=== PATIENT | male | born 1955 | race Two or more races ===

== ENCOUNTER 2017-01-07 09:00 | Emergency (ER) | payer BC ==
[2017-01-07 09:10] VITALS: BP 150/98; PULSE 97; RESP 16; TEMP 98.2; O2SAT 98
--- NOTE | 2017-01-07 10:15 | UCPHY ---
H & P Time Seen by Provider: 01/07/17 09:59 Patient Type: New HPI/ROS: This patient complains of nasal congestion 4 days duration. He has associated cough. He has also had some sneezing. He is visiting from [place] over the past 5 days with plans to stay for another few days. He wonders if needed may be having seasonal allergies here though he has never had this in [place]. He complains primarily of the cough that keeps him up at night. He denies any other associated symptoms. He reports that he has clear mucus from his nose and occasionally with cough but no purulent-appearing drainage. ROS: No fevers or chills. No other constitutional symptoms. HEENT: No sore throat, no ear pain. Pulmonary: No pleuritic pain or shortness of breath GI: No vomiting. Integumentary: No skin rash. 7 point ROS is otherwise negative. Past Medical/Surgical History: Otherwise healthy Smoking Status: Never smoked Physical Exam: Physical Exam Vital signs are normal. General: No acute distress HEENT: Nose: Clear discharge bilaterally. No sinus tenderness to percussion. Ears: External canals and tympanic membranes are clear with no erythema or abnormal findings bilaterally. Oropharynx: No erythema or exudates. No dysphonia. No drooling or stridor. Eyes: Pupils equal and react to light. Extraocular motions are intact. Neck: Supple Lungs: Clear to auscultation bilaterally with no rales, rhonchi or wheeze. No respiratory distress. Cardiac: Regular rate and rhythm with no murmur gallop or rub Skin: No rash or pallor. Neuro: Alert with no focal deficits noted. Initial differential diagnosis: URI with cough versus seasonal allergies with cough. Constitutional: Initial Vital Signs Temperature (C) 36.8 C 01/07/17 09:01 Heart Rate 97 01/07/17 09:01 Respiratory Rate 16 01/07/17 09:01 Blood Pressure 150/98 H 01/07/17 09:01 O2 Sat (%) 98 01/07/17 09:01 O2 Delivery Mode Room Air Allergies/Adverse Reactions: bee venom protein (honey bee) Allergy (Severe, Verified 01/07/17 09:09) Hives Home Medications: Medication Instructions Recorded Fluticasone Nasal [Flonase Nasal 2 sprays NASAL DAILY #1 mdi 01/07/17 [facility] (RX)] Guaifenesin/Codeine Phosphate 5 - 10 ml PO Q6 PRN #120 ml 01/07/17 [Guaifenesin-Codeine Liquid] MDM/Departure - MDM ED Course/Re-evaluation: This patient appears clinically well with no evidence of lower respiratory infection, as or toxicity. I counseled him regarding seasonal allergies versus URI with cough. - Depart Disposition: Home, Routine, Self-Care Clinical Impression: Viral URI with cough Condition: Good Instructions: Upper Respiratory Infection (ED) Additional Instructions: Diagnosis: Viral upper respiratory infection with cough Plan: Humidifier Guaifenesin [id number] mucolytic Afrin nasal spray for 2 days then stop the Afrin Flovent steroid nasal spray in addition take this for 10-14 days Guaifenesin with codeine for cough prevents sleep Return for any significant worsening despite treatment plan Prescriptions: Fluticasone Nasal [Flonase Nasal [facility] (RX)] 2 sprays NASAL DAILY #1 mdi Guaifenesin/Codeine Phosphate [Guaifenesin-Codeine Liquid] 5 - 10 ml PO Q6 PRN # 120 ml PRN Reason: Cough Referrals: PEREZ,DEM [Other] - As per Instructions - PQRS PQRS Measurement: NA
== END 2017-01-07 10:26 | disposition home or self-care (01) ==
LOC: CED 09:00
DX: J06.9 Acute upper respiratory infection, unspecified (principal); R05 Cough
CPT/HCPCS: 99203-PO; G0463-PO

== ENCOUNTER 2017-09-15 20:19 | Emergency (ER) | payer BC ==
--- NOTE | 2017-09-15 20:39 | EDPHY ---
H & P Stated Complaint: Dizzy and lighthead HPI/ROS: CHIEF COMPLAINT: Dizzy, unresponsive HISTORY OF PRESENT ILLNESS: The patient is a 62 y/o male complaining of a few episodes of dizziness and unresponsiveness lasting 15 seconds each time, onset 3 days ago. He is from [place], visiting for his daughter's graduation last week. Three days ago, while soaking in a sulfur spring, he became dizzy and "out of it" for 15 seconds. It happened again this morning and again when standing up after dinner this evening. Again, each episode lasted about 15 seconds before resolving. He denies headache, confusion, visual changes, numbness, weakness, shortness of breath, chest pain, or any other associated symptoms. He denies history of cardiac issues, neurologic issues, illicit drug use, or heavy alcohol use. Previous EKGs have been normal REVIEW OF SYSTEMS: A ten point review of systems was performed and is negative with the exception of the items mentioned in the HPI. Past medical history: Denies Past surgical history: 1. Rotator cuff repair 2. Discectomy Family history: 1. Atrial fibrillation, brother and uncle Social history: From [place], , three kids General Appearance: Alert. Vital signs reviewed. Blood pressure 139/92 Eyes: Pupils equal and round, no conjunctival injection, no discharge. Anicteric. ENT, Mouth: Mucous membranes are moist, no oropharyngeal erythema or edema. Neck: No lymphadenopathy, supple. Respiratory: Lungs are clear to auscultation; no wheezes, rales, or rhonchi. Cardiovascular: Regular rate and rhythm; no murmur, rub, or gallop. Gastrointestinal: Abdomen is soft and nontender, no masses or organomegaly, bowel sounds normal. Skin: Warm and dry, no rashes on exposed skin, normal color. Back: Nontender to palpation over the thoracolumbar spine. No CVAT. Extremities: No lower extremity edema, no calf tenderness or swelling. Neurological: Alert and oriented. Moving all four extremities easily and equally. Cranial nerves II through XII are examined and are intact (visual acuity not tested). Strength is 5 over 5 bilaterally with testing of all major motor groups. Sensation is intact to light touch over all 4 extremities. Deep tendon reflexes are 2+ in the biceps and knees bilaterally. Gait is normal. [id number] is performed accurately. Psychiatric: Normal affect. - Personal History Current Tetanus/Diphtheria Vaccine: Yes Current Tetanus Diphtheria and Acellular Pertussis (TDAP): Yes Tetanus Vaccine Date: within 10 years - Medical/Surgical History Hx Asthma: No Hx Chronic Respiratory Disease: No Hx Diabetes: No Hx Cardiac Disease: No Hx Renal Disease: No Hx Cirrhosis: No Hx Alcoholism: No Hx HIV/AIDS: No Hx Splenectomy or Spleen Trauma: No Other PMH: Lumbar diskectomy - Social History Smoking Status: Never smoked Constitutional: Initial Vital Signs Temperature (C) 36.5 C 09/15/17 20:27 Heart Rate 68 09/15/17 20:27 Respiratory Rate 16 09/15/17 20:27 Blood Pressure 139/92 H 09/15/17 20:27 O2 Sat (%) 97 09/15/17 20:27 O2 Delivery Mode Room Air Allergies/Adverse Reactions: bee venom protein (honey bee) Allergy (Severe, Verified 09/15/17 20:30) Hives Home Medications: Medication Instructions Recorded NK [No Known Home Meds] 09/15/17 Medical Decision Making - Diagnostics EKG Interpretation: 12 lead EKG is interpreted in Trace master View by emergency department physician. ED Course/Re-evaluation: He is aware that his blood pressure was high relieved in the emergency department. He will have this followed up by his primary care physician next month. Episodes of presyncope, likely vasovagal. Labs, including chemistries, troponin , d-dimer, and CBC essentially normal. EKG without arrhythmia. He is not interested in hospitalization for continued cardiac monitoring and is comfortable following up with his PCP when he returns home. Danger signs reviewed. I do not find evidence of arrhythmia, dehydration, blood loss, electrolyte disorder. Differential Diagnosis: Syncope including but not limited to vasovagal syncope, arrhythmia, dehydration , and blood loss. Dizziness including but not limited to peripheral and central causes of vertigo, orthostatic causes including dehydration, and blood loss. - Data Points Laboratory Results: Laboratory Results 09/15/17 20:45 09/15/17 20:45 Departure - Departure Disposition: Home, Routine, Self-Care Clinical Impression: Pre-syncope Condition: Good Instructions: Near Syncope (ED) Additional Instructions: Your blood pressure was high in the emergency department tonight. You should have your blood pressure checked by your primary care doctor within the next month. Referrals: MALENA POLLOCK [Other] - As per Instructions Stand Alone Forms: Airline Excuse Report Scribed for: Jen Barnard Report Scribed by: Emma Dempsey Date of Report: 09/15/17 Time of Report: 20:55 Physician Review and Approval Statement: 09/15/17 20:39 Portions of this note were transcribed by the clinical medical transcriptionist. I, Dr. Jen Barnard, personally performed the history, physical exam, and medical decision- making; and confirmed the accuracy of the information in the transcribed note.
[2017-09-15 20:59] LABS: PLATELET COUNT 294 10^3/uL (150-400)
--- NOTE | 2017-09-15 21:22 | CPEKG ---
Heart Rate: 67 RR Interval: 896 P-R Interval: 160 QRSD Interval: 82 QT Interval: 388 QTC Interval: 410 P Citra: 66 QRS Citra: 40 T Wave Citra: 8 EKG Severity - BORDERLINE ECG - EKG Impression: SINUS RHYTHM EKG Impression: CONSIDER LEFT VENTRICULAR HYPERTROPHY Electronically Signed By: Serafin Bailey 17-Sep-2017 07:53:38
[2017-09-15 22:44] VITALS: BP 137/98; PULSE 66; RESP 15; TEMP 98.2; O2SAT 98
== END 2017-09-15 22:36 | disposition home or self-care (01) ==
DX: R55 Syncope and collapse (principal)